=== PATIENT | female | born 1975 ===

== ENCOUNTER 2018-06-06 00:24 | Emergency (ER) | payer MEDICAID ==
[2018-06-06 00:32] VITALS: RESP 20
--- NOTE | 2018-06-06 01:12 | C.PDOC ---
History Of Present Illness 43 year old female presents to the ED c/o chest wall pain for the past couple of days. Patient states pain worsens with deep inspiration. Patient able to speak in complete sentences. Patient denies fever, chills, nausea, vomit, SOB, palpitations, rash, weakness, numbness. Time Seen by Provider: 06/06/18 01:12 Chief Complaint (Nursing): Chest Pain History Per: Patient History/Exam Limitations: no limitations Onset/Duration Of Symptoms: Days Current Symptoms Are (Timing): Still Present Quality: "Pain" Recent travel outside of the [place]: No Additional History Per: Patient Past Medical History Reviewed: Historical Data, Nursing Documentation, Vital Signs Vital Signs: Last Vital Signs Temp 98 F 06/06/18 00:28 Pulse 104 H 06/06/18 00:28 Resp 20 06/06/18 00:28 BP 167/89 H 06/06/18 00:28 Pulse Ox 96 06/06/18 00:28 - Medical History PMH: No Chronic Diseases Surgical History: No Surg Hx Family History: States: Unknown Family Hx - Social History Hx Alcohol Use: No Hx Substance Use: No - Immunization History Hx Tetanus Toxoid Vaccination: No Hx Influenza Vaccination: No Hx Pneumococcal Vaccination: No Review Of Systems Constitutional: Negative for: Fever, Chills Cardiovascular: Positive for: Chest Pain. Negative for: Palpitations Respiratory: Negative for: Cough, Shortness of Breath Gastrointestinal: Negative for: Nausea, Vomiting, Abdominal Pain Skin: Negative for: Rash Neurological: Negative for: Weakness, Numbness, Headache Physical Exam - Physical Exam Appears: Non-toxic, No Acute Distress Skin: Warm, Dry Head: Normacephalic Eye(s): bilateral: Normal Inspection Neck: Supple Chest: Symmetrical, Tenderness (mild reproducible left sided chest wall discomfort) Cardiovascular: Rhythm Regular Respiratory: No Rales, No Rhonchi, No Wheezing Gastrointestinal/Abdominal: Soft, No Tenderness, No Guarding, No Rebound Extremity: Bilateral: Atraumatic, Normal Color And Temperature, Normal ROM Neurological/Psych: Oriented x3, Normal Speech, Normal Cognition Gait: Steady ED Course And Treatment - Laboratory Results Result Diagrams: 06/06/18 01:36 06/06/18 01:36 ECG: Interpreted By Me, Viewed By Me ECG Rhythm: Sinus Rhythm (105), Nonspecific Changes O2 Sat by Pulse Oximetry: 96 (ON RA) Pulse Ox Interpretation: Normal - Radiology CXR: Interpreted by Me, Viewed By Me CXR Interpretation: No: Infiltrates, Fracture, Pnemothorax Progress Note: Plan: - EKG. - Labs. - Aspirin 325 mg PO. - UA Reevaluation Time: 02:54 Reassessment Condition: Improved Disposition Counseled Patient/Family Regarding: Studies Performed, Diagnosis, Need For Followup - Disposition Referrals: [facility] [Outside] [facility] [Outside] Disposition: HOME/ ROUTINE Disposition Time: 01:12 Condition: FAIR Additional Instructions: Por favor regrese si los sntomas recurren o simplemente no se sienten jnuie. Instructions: Costochondritis (DC) Forms: [employer] (Slovak) Print Language: TRISTANIAN - Clinical Impression Clinical Impression: Costochondral chest pain - Scribe Statement The provider has reviewed the documentation as recorded by the Scribe Marko Gaines All medical record entries made by the Scribe were at my direction and personally dictated by me. I have reviewed the chart and agree that the record accurately reflects my personal performance of the history, physical exam, medical decision making, and the department course for this patient. I have also personally directed, reviewed, and agree with the discharge instructions and disposition.
[2018-06-06] MEDS ORDERED: Aspirin 325 mg EC Tablets PO STA (01:19)
[2018-06-06 01:41] LABS: BASO % 0.1 % (0.0-2.0); EOS # 0.8 K/uL (0.0-0.7); EOS % 11.5 % (0.0-4.0); HEMOGLOBIN 13.5 g/dL (11.0-16.0); LYMPH # 2.9 K/uL (1.0-4.3); LYMPH % 38.9 % (20.0-40.0); MEAN CELL VOLUME 90.3 fL (81.0-99.0); MEAN CORPUSCULAR HEMOGLOBIN 30.8 pg (27.0-31.0); MEAN CORPUSCULAR HGB CONC 34.1 g/dL (33.0-37.0); MEAN PLATELET VOLUME 7.3 fL (7.2-11.7); MONO # 0.7 K/uL (0.0-0.8); MONO % 8.9 % (0.0-10.0); NEUT % 40.6 % (50.0-75.0); RBC 4.39 Mil/uL (3.80-5.20); RED CELL DISTRIBUTION WIDTH 12.6 % (11.5-14.5); WHITE BLOOD COUNT 7.3 K/uL (4.8-10.8)
[2018-06-06 01:48] LABS: SQUAMOUS EPITHIAL 2 /hpf (0-5); URINE BACTERIA RARE (<OCC); URINE BILIRUBIN NEGATIVE (NEGATIVE); URINE CLARITY Clear (Clear); URINE COLOR Straw (YELLOW); URINE GLUCOSE (UA) NORMAL (Normal); URINE LEUKOCYTE ESTERASE NEG Leu/uL (Negative); URINE PROTEIN NEGATIVE (NEGATIVE); URINE UROBILINOGEN NORMAL mg/dL (0.2-1.0)
[2018-06-06 01:52] LABS: HCG,QUALITATIVE URINE NEGATIVE (NEGATIVE); URINE BLOOD TRACE (NEGATIVE)
[2018-06-06] MEDS ORDERED: Aspirin 325 mg EC Tablets PO ONE (02:05)
[2018-06-06 02:15] LABS: BLOOD UREA NITROGEN 14 mg/dL (7-17); CALCIUM 8.6 mg/dl (8.6-10.4); GFR NON-AFRICAN AMERICAN > 60
[2018-06-06 02:32] LABS: ALB/GLOB RATIO 1.3 (1.0-2.1); ALBUMIN 4.4 g/dL (3.5-5.0); ALT/SGPT 14 U/L (9-52); AST/SGOT 41 U/L (14-36)
[2018-06-06 03:19] VITALS: BP 128/80; PULSE 66; TEMP 97.7; O2SAT 100
--- NOTE | 2018-06-06 10:22 | RAD ---
Date of service: 06/06/2018 HISTORY: cp COMPARISON: No prior. TECHNIQUE: Chest PA and lateral FINDINGS: LUNGS: No active pulmonary disease. PLEURA: No significant pleural effusion identified. No pneumothorax apparent. CARDIOVASCULAR: No aortic atherosclerotic calcification present. Normal cardiac size. No pulmonary vascular congestion. OSSEOUS STRUCTURES: No significant abnormalities. VISUALIZED UPPER ABDOMEN: Normal. OTHER FINDINGS: None. IMPRESSION: No active disease.
== END 2018-06-06 03:19 | disposition home or self-care (01) ==
LOC: C.ER 00:24
DX: R07.89 Other chest pain (principal)
CPT/HCPCS: 71046; 80053; 81001; 84484; 84703; 85025; 96374; 99285; J1885